=== PATIENT | female | born 1950 | race Caucasian/White ===

== ENCOUNTER 2024-02-13 20:08 | Inpatient (IN) | payer OTHER ==
[~2024-02-13] VITALS: Ht 167.6 cm; Wt 94.3 kg
[2024-02-13] MEDS ORDERED: ONDANSETRON HCL/PF 4 MG/2 ML VIAL ONE (20:51)
[2024-02-13] MEDS ORDERED: protAMINE SULFATE 10 MG/ML VIAL IV ONE (20:52)
[2024-02-13] MEDS ORDERED: HYDROCODONE/APAP 10/325MG TABLET ONE (20:52)
[2024-02-13] MEDS: HYDROCODONE/APAP 10/325MG TABLET PO ONE (20:54)
[2024-02-13] MEDS: ONDANSETRON HCL/PF 4 MG/2 ML VIAL IVP ONE (20:54)
[2024-02-13 21:01] LABS: BASOPHILS % (AUTO) 0.3 % (0.0-2.0); EOSINOPHILS # (AUTO) 0.1 K/uL (0.0-0.7); EOSINOPHILS % (AUTO) 0.5 % (0.0-6.0); HEMATOCRIT 33 % (33-45); HEMOGLOBIN 10.9 g/dL (11.5-14.8); LYMPHOCYTES # (AUTO) 0.5 K/uL (0.8-4.8); LYMPHOCYTES % (AUTO) 4.4 % (20.0-44.0); MEAN CORPUSCULAR HEMOGLOBIN 32 PG (26.0-33.0); MEAN CORPUSCULAR HGB CONC 33 g/dl (31.0-36.0); MEAN CORPUSCULAR VOLUME 97 fL (82-100); MONOCYTES # (AUTO) 0.6 K/uL (0.1-1.30); MONOCYTES % (AUTO) 4.9 % (2.0-12.0); NEUTROPHILS % (AUTO) 89.9 % (43.0-81.0); PLATELET COUNT (AUTO) 151 K/uL (150-450); RED BLOOD CELL COUNT(AUTO) 3.38 MIL/uL (4.0-5.2); RED CELL DISTRIBUTION WIDTH 15.9 % (11.5-15.0); WHITE BLOOD COUNT (AUTO) 12.3 K/uL (4.3-11.0)
[2024-02-13] MEDS ORDERED: PANTOPRAZOLE 40 MG VIAL ONE (21:09)
[2024-02-13] MEDS: PANTOPRAZOLE 80 MG in IV NS 0.9% 500 ML IV ONE (21:09)
[2024-02-13 21:13] LABS: APPEARANCE,URINE CLEAR (CLEAR); BILIRUBIN,URINE 1+ (NEGATIVE); BLOOD, URINE 3+ Ery/uL (NEGATIVE); COLOR,URINE YELLOW (YELLOW); KETONES,URINE TRACE mg/dL (NEGATIVE); LEUKOCYTE ESTERASE ,URINE TRACE (NEGATIVE); NITRITE, URINE NEGATIVE (NEGATIVE); PROTEIN,URINE 2+ mg/dl (NEGATIVE); UGLUCOSE 1+ mg/dL (NEGATIVE); UROBILINOGEN,URINE 0.2 EU/dL (0.2)
[2024-02-13 21:17] LABS: CALCIUM, SERUM 8.7 mg/dL (8.5-10.1); CARBON DIOXIDE 38 mmol/L (21-32); CHLORIDE 90 mmol/L (98-107); CREATININE 5.7 mg/dL (0.6-1.3); GLUCOSE 191 mg/dL (74-106); POTASSIUM 3.7 mmol/L (3.5-5.1); SODIUM SERUM 138 mmol/L (136-145); UREA NITROGEN, BLOOD 52 mg/dL (7-18)
[2024-02-13 21:21] LABS: INR 1.07 (0.91-1.10); PARTIAL THROMBOPLASTIN TIME 25.2 SEC (24.3-34.3); PROTHROMBIN TIME 11.3 SECS (9.2-11.1)
[2024-02-13 21:25] LABS: ALANINE AMINOTRANSFERASE 18 U/L (12-78); ALBUMIN 2.9 g/dL (3.4-5.0); ALKALINE PHOSPHATASE 161 U/L (46-116); ASPARTATE AMINOTRANSFERASE 7 U/L (15-37); BILIRUBIN,DIRECT 0.2 mg/dL (0.0-0.2); BILIRUBIN,TOTAL 0.6 mg/dL (0.2-1.0); LACTIC ACID 1.3 mmol/L (0.4-2.0); LIPASE 51 U/L (16-77); TOTAL PROTEIN, SERUM 6.3 g/dL (6.4-8.2)
[2024-02-13] MEDS: CEFTRIAXONE 1GM BAG (ER ONLY) 1 GM/50 ML PIGGYBACK IV ONE (21:33)
[2024-02-13 21:47] LABS: RBC,URINE 21-50 /HPF (0-2)
[2024-02-13 21:48] LABS: ADD URINE CULTURE YES; BACTERIA,URINE Few /HPF (None Seen)
[2024-02-14] VITALS (8 sets, daily range): BP systolic 112–151; BP diastolic 47–56; TEMP 97.5–98.4; O2SAT 92–100
[2024-02-14] MEDS ORDERED: ONDANSETRON HCL/PF 4 MG/2 ML VIAL IVP PRN (00:30)
[2024-02-14] MEDS ORDERED: DEXTROSE 50%-WATER 50 ML DISP.SYRIN IV PRN (00:30)
[2024-02-14] MEDS ORDERED: ACETAMINOPHEN 650 MG/SUPP.RECT RC PRN (00:30)
[2024-02-14] MEDS ORDERED: CEFTRIAXONE 1GM BAG (ER ONLY) 50 ML IV ONE (00:56)
[2024-02-14] MEDS: CEFTRIAXONE 1 G in IV D5W 50 ML IV SCH (00:58)
[2024-02-14] MEDS: IV NS 0.9% 1,000 ML IV PRN (00:59)
[2024-02-14] MEDS: BLOOD SUGAR DIAGNOSTIC 1 EACH STRIP IN SCH (05:16)
[2024-02-14] MEDS: INSULIN REGULAR, HUMAN 100 UNIT/ML 3 ML VIAL SQ PRN (05:17)
[2024-02-14 07:59] LABS: BASOPHILS % (AUTO) 0.3 % (0.0-2.0); EOSINOPHILS # (AUTO) 0.1 K/uL (0.0-0.7); EOSINOPHILS % (AUTO) 0.6 % (0.0-6.0); HEMATOCRIT 32 % (33-45); HEMOGLOBIN 10.4 g/dL (11.5-14.8); LYMPHOCYTES # (AUTO) 0.6 K/uL (0.8-4.8); LYMPHOCYTES % (AUTO) 4.7 % (20.0-44.0); MEAN CORPUSCULAR HEMOGLOBIN 32 PG (26.0-33.0); MEAN CORPUSCULAR HGB CONC 33 g/dl (31.0-36.0); MEAN CORPUSCULAR VOLUME 98 fL (82-100); MONOCYTES # (AUTO) 0.7 K/uL (0.1-1.30); MONOCYTES % (AUTO) 5.5 % (2.0-12.0); NEUTROPHILS # (AUTO) 11.1 K/uL (1.8-8.9); NEUTROPHILS % (AUTO) 88.9 % (43.0-81.0); PLATELET COUNT (AUTO) 136 K/uL (150-450); RED BLOOD CELL COUNT(AUTO) 3.23 MIL/uL (4.0-5.2); RED CELL DISTRIBUTION WIDTH 16.1 % (11.5-15.0); WHITE BLOOD COUNT (AUTO) 12.5 K/uL (4.3-11.0)
[2024-02-14] MEDS ORDERED: MULT-213 PO (08:07)
[2024-02-14] MEDS ORDERED: SEVE0.8P3 PO (08:07)
[2024-02-14] MEDS ORDERED: CRAN425C6 PO (08:07)
[2024-02-14] MEDS ORDERED: MIDO10TA PO (08:07)
[2024-02-14] MEDS ORDERED: INSU100V39 SQ (08:07)
[2024-02-14] MEDS ORDERED: HYDR-4076 PO (08:07)
[2024-02-14] MEDS ORDERED: HYDR-4303 PO (08:07)
[2024-02-14] MEDS ORDERED: GLUC1KIT IM (08:07)
[2024-02-14] MEDS ORDERED: OMEP20CA15 PO (08:07)
[2024-02-14] MEDS ORDERED: FURO80TA85 PO ×2 (08:07)
[2024-02-14] MEDS ORDERED: ACET-2605 PO (08:07)
[2024-02-14] MEDS ORDERED: FERR325T28 PO (08:07)
[2024-02-14] MEDS ORDERED: SENN-175 PO (08:07)
[2024-02-14] MEDS ORDERED: INSU100I19 SQ (08:07)
[2024-02-14] MEDS ORDERED: PREG50CA PO (08:07)
[2024-02-14] MEDS ORDERED: ACET-868 PO (08:07)
[2024-02-14] MEDS ORDERED: DOCU-141 PO (08:07)
[2024-02-14] MEDS ORDERED: CHOL100043 PO (08:07)
[2024-02-14] MEDS ORDERED: MAGN400O6 PO (08:07)
[2024-02-14] MEDS: PANTOPRAZOLE 40 MG VIAL IV SCH (08:25)
[2024-02-14 08:40] LABS: CARBON DIOXIDE 35 mmol/L (21-32); CHLORIDE 92 mmol/L (98-107); POTASSIUM 4.1 mmol/L (3.5-5.1); SODIUM SERUM 137 mmol/L (136-145)
[2024-02-14 08:56] LABS: CALCIUM, SERUM 8.2 mg/dL (8.5-10.1); CREATININE 5.8 mg/dL (0.6-1.3); GLUCOSE 226 mg/dL (74-106); MAGNESIUM 2.5 mg/dL (1.8-2.4); PHOSPHORUS 6.5 mg/dL (2.5-4.9); UREA NITROGEN, BLOOD 59 mg/dL (7-18)
[2024-02-14 17:53] LABS: OCCULT BLOOD STOOL NEGATIVE (NEGATIVE)
[2024-02-14] MEDS ORDERED: MINERAL OIL 133 ML (PYXIS) 1 EA ENEMA RC PRN (20:00)
[2024-02-15] VITALS (7 sets, daily range): BP systolic 118–154; BP diastolic 42–61; TEMP 97.7–98.3; O2SAT 95–100
[2024-02-15] MEDS ORDERED: MAGNESIUM HYDROXIDE 30 ML UDC PO PRN
[2024-02-15] MEDS ORDERED: hydrALAZINE HCL 25 MG TABLET PO PRN
[2024-02-15] MEDS ORDERED: ACETAMINOPHEN ES 500 MG TABLET PO PRN
[2024-02-15] MEDS ORDERED: ACETAMINOPHEN 325 MG TABLET PO PRN
[2024-02-15] MEDS: HYDROCODONE/APAP 5/325MG TABLET PO PRN (01:21)
[2024-02-15] MEDS: DOCUSATE SODIUM 100 MG CAPSULE PO SCH (08:24)
[2024-02-15] MEDS: FERROUS SULFATE (325 MG) 325 MG/TAB TABLET PO SCH (08:25)
[2024-02-15] MEDS: CHOLECALCIFEROL 1,000 UNIT TABLET (VIT D3) PO SCH (08:25)
[2024-02-15] MEDS: PREGABALIN 25 MG CAPSULE PO SCH (08:25)
[2024-02-15] MEDS: MULTIVIT W/MINERALS 1 TAB TABLET PO SCH (08:25)
[2024-02-15] MEDS: SEVELAMER CARBONATE 800 MG POWD.PACK PO SCH (08:25)
[2024-02-15] MEDS ORDERED: Medication Not On Formulary EA (Cranberry Extract (Cranberry) 425 MG) PO SCH (09:00)
[2024-02-15] MEDS ORDERED: MIDODRINE HCL (5MG) 5 MG TABLET PO SCH (09:00)
[2024-02-15 09:34] LABS: BASOPHILS % (AUTO) 0.4 % (0.0-2.0); EOSINOPHILS # (AUTO) 0.2 K/uL (0.0-0.7); HEMATOCRIT 30 % (33-45); HEMOGLOBIN 9.9 g/dL (11.5-14.8); LYMPHOCYTES # (AUTO) 0.5 K/uL (0.8-4.8); LYMPHOCYTES % (AUTO) 5.9 % (20.0-44.0); MEAN CORPUSCULAR HEMOGLOBIN 33 PG (26.0-33.0); MEAN CORPUSCULAR HGB CONC 33 g/dl (31.0-36.0); MEAN CORPUSCULAR VOLUME 99 fL (82-100); MONOCYTES # (AUTO) 0.5 K/uL (0.1-1.30); MONOCYTES % (AUTO) 6.3 % (2.0-12.0); NEUTROPHILS # (AUTO) 7.1 K/uL (1.8-8.9); NEUTROPHILS % (AUTO) 85.4 % (43.0-81.0); PLATELET COUNT (AUTO) 132 K/uL (150-450); RED BLOOD CELL COUNT(AUTO) 3.05 MIL/uL (4.0-5.2); RED CELL DISTRIBUTION WIDTH 15.8 % (11.5-15.0); WHITE BLOOD COUNT (AUTO) 8.4 K/uL (4.3-11.0)
[2024-02-15 09:54] LABS: ALANINE AMINOTRANSFERASE 17 U/L (12-78); ALBUMIN 2.6 g/dL (3.4-5.0); ALKALINE PHOSPHATASE 144 U/L (46-116); ASPARTATE AMINOTRANSFERASE 5 U/L (15-37); BILIRUBIN,TOTAL 0.5 mg/dL (0.2-1.0); CALCIUM, SERUM 8.6 mg/dL (8.5-10.1); CARBON DIOXIDE 36 mmol/L (21-32); CHLORIDE 96 mmol/L (98-107); CREATININE 4.6 mg/dL (0.6-1.3); GLUCOSE 108 mg/dL (74-106); MAGNESIUM 2.2 mg/dL (1.8-2.4); PHOSPHORUS 5.4 mg/dL (2.5-4.9); POTASSIUM 3.8 mmol/L (3.5-5.1); SODIUM SERUM 137 mmol/L (136-145); TOTAL PROTEIN, SERUM 5.8 g/dL (6.4-8.2); UREA NITROGEN, BLOOD 39 mg/dL (7-18)
[2024-02-15 13:29] LABS: IRON, SERUM 131 ug/dl (50-175); TOTAL IRON BINDING CAPACITY 148 ug/dl (250-450)
[2024-02-15 15:07] LABS: FERRITIN 2182 ng/mL (8-388)
[2024-02-15] MEDS: SENNOSIDES 8.6 MG TABLET PO SCH (21:31)
[2024-02-15] MEDS ORDERED: INSULIN GLARGINE, 100 UNIT/ML CARTRIDGE SQ SCH (22:00)
[2024-02-16] VITALS (8 sets, daily range): BP systolic 145–152; BP diastolic 49–57; TEMP 97.6–98.3; O2SAT 96–100
[2024-02-16] MEDS ORDERED: Z GUARD REMEDY 4 OZ OINT TP PRN (08:30)
[2024-02-16] MEDS: Z GUARD REMEDY 4 OZ OINT TP SCH (09:18)
[2024-02-16 09:42] LABS: BASOPHILS % (AUTO) 0.5 % (0.0-2.0); EOSINOPHILS # (AUTO) 0.2 K/uL (0.0-0.7); EOSINOPHILS % (AUTO) 1.9 % (0.0-6.0); HEMATOCRIT 28 % (33-45); HEMOGLOBIN 9.2 g/dL (11.5-14.8); LYMPHOCYTES # (AUTO) 0.5 K/uL (0.8-4.8); LYMPHOCYTES % (AUTO) 5.3 % (20.0-44.0); MEAN CORPUSCULAR HEMOGLOBIN 32 PG (26.0-33.0); MEAN CORPUSCULAR HGB CONC 33 g/dl (31.0-36.0); MEAN CORPUSCULAR VOLUME 99 fL (82-100); MONOCYTES # (AUTO) 0.6 K/uL (0.1-1.30); MONOCYTES % (AUTO) 7.3 % (2.0-12.0); NEUTROPHILS # (AUTO) 7.3 K/uL (1.8-8.9); PLATELET COUNT (AUTO) 139 K/uL (150-450); RED BLOOD CELL COUNT(AUTO) 2.85 MIL/uL (4.0-5.2); RED CELL DISTRIBUTION WIDTH 15.6 % (11.5-15.0); WHITE BLOOD COUNT (AUTO) 8.6 K/uL (4.3-11.0)
[2024-02-16 10:30] LABS: CALCIUM, SERUM 7.8 mg/dL (8.5-10.1); CARBON DIOXIDE 31 mmol/L (21-32); CHLORIDE 98 mmol/L (98-107); CREATININE 5.3 mg/dL (0.6-1.3); GLUCOSE 109 mg/dL (74-106); POTASSIUM 3.3 mmol/L (3.5-5.1); SODIUM SERUM 136 mmol/L (136-145); UREA NITROGEN, BLOOD 47 mg/dL (7-18)
[2024-02-16] MEDS ORDERED: IV NS 0.9% 250 ML IV ONE (11:13)
[2024-02-16] MEDS ORDERED: IOHEXOL-300 100 ML VIAL IV ONE (11:13)
[2024-02-17 05:00] VITALS: BP 142/53; TEMP 98.2; O2SAT 98
[2024-02-17 06:52] VITALS: O2SAT 99
[2024-02-17 07:00] VITALS: BP 139/53; TEMP 98.2; O2SAT 99
[2024-02-17 11:11] LABS: HEPATITIS A AB, IgM Negative (Negative); HEPATITIS B SURFACE AB Non Reactive (.)
[2024-02-17 15:42] LABS: BASOPHILS % (AUTO) 0.6 % (0.0-2.0); EOSINOPHILS # (AUTO) 0.2 K/uL (0.0-0.7); EOSINOPHILS % (AUTO) 2.1 % (0.0-6.0); HEMATOCRIT 25 % (33-45); HEMOGLOBIN 8.4 g/dL (11.5-14.8); LYMPHOCYTES # (AUTO) 0.5 K/uL (0.8-4.8); LYMPHOCYTES % (AUTO) 6.5 % (20.0-44.0); MEAN CORPUSCULAR HEMOGLOBIN 33 PG (26.0-33.0); MEAN CORPUSCULAR HGB CONC 34 g/dl (31.0-36.0); MEAN CORPUSCULAR VOLUME 98 fL (82-100); MONOCYTES # (AUTO) 0.6 K/uL (0.1-1.30); MONOCYTES % (AUTO) 8.4 % (2.0-12.0); NEUTROPHILS # (AUTO) 6.3 K/uL (1.8-8.9); NEUTROPHILS % (AUTO) 82.4 % (43.0-81.0); PLATELET COUNT (AUTO) 140 K/uL (150-450); RED BLOOD CELL COUNT(AUTO) 2.56 MIL/uL (4.0-5.2); RED CELL DISTRIBUTION WIDTH 15.5 % (11.5-15.0); WHITE BLOOD COUNT (AUTO) 7.6 K/uL (4.3-11.0)
[2024-02-17 15:53] LABS: CALCIUM, SERUM 7.4 mg/dL (8.5-10.1); CARBON DIOXIDE 27 mmol/L (21-32); CHLORIDE 97 mmol/L (98-107); CREATININE 6.1 mg/dL (0.6-1.3); GLUCOSE 166 mg/dL (74-106); POTASSIUM 3.8 mmol/L (3.5-5.1); SODIUM SERUM 134 mmol/L (136-145); UREA NITROGEN, BLOOD 54 mg/dL (7-18)
[2024-02-17 16:00] VITALS: BP 131/54; TEMP 97.9; O2SAT 99
[2024-02-17 21:40] VITALS: BP 146/46; TEMP 97.9; O2SAT 97
[2024-02-18 07:00] VITALS: BP 121/51; TEMP 98.4; O2SAT 97
[2024-02-18 07:23] VITALS: O2SAT 99
[2024-02-18 07:36] LABS: BASOPHILS # (AUTO) 0.1 K/uL (0.0-0.2); BASOPHILS % (AUTO) 0.9 % (0.0-2.0); EOSINOPHILS # (AUTO) 0.2 K/uL (0.0-0.7); EOSINOPHILS % (AUTO) 2.5 % (0.0-6.0); HEMATOCRIT 26 % (33-45); HEMOGLOBIN 8.6 g/dL (11.5-14.8); LYMPHOCYTES # (AUTO) 0.5 K/uL (0.8-4.8); LYMPHOCYTES % (AUTO) 7.5 % (20.0-44.0); MEAN CORPUSCULAR HEMOGLOBIN 32 PG (26.0-33.0); MEAN CORPUSCULAR HGB CONC 33 g/dl (31.0-36.0); MEAN CORPUSCULAR VOLUME 97 fL (82-100); MONOCYTES # (AUTO) 0.7 K/uL (0.1-1.30); MONOCYTES % (AUTO) 10.8 % (2.0-12.0); NEUTROPHILS # (AUTO) 5.2 K/uL (1.8-8.9); NEUTROPHILS % (AUTO) 78.3 % (43.0-81.0); PLATELET COUNT (AUTO) 162 K/uL (150-450); RED BLOOD CELL COUNT(AUTO) 2.67 MIL/uL (4.0-5.2); RED CELL DISTRIBUTION WIDTH 15.8 % (11.5-15.0); WHITE BLOOD COUNT (AUTO) 6.6 K/uL (4.3-11.0)
[2024-02-18 08:02] LABS: CALCIUM, SERUM 7.8 mg/dL (8.5-10.1); CARBON DIOXIDE 29 mmol/L (21-32); CHLORIDE 96 mmol/L (98-107); CREATININE 5.4 mg/dL (0.6-1.3); GLUCOSE 144 mg/dL (74-106); POTASSIUM 3.8 mmol/L (3.5-5.1); SODIUM SERUM 135 mmol/L (136-145); UREA NITROGEN, BLOOD 41 mg/dL (7-18)
[2024-02-18] MEDS: SEVELAMER CARBONATE 800 MG TABLET PO SCH (12:27)
[2024-02-18 16:00] VITALS: BP 130/52; TEMP 97.7; O2SAT 98
[2024-02-18 20:00] VITALS: BP 151/55; TEMP 98.4; O2SAT 98
[2024-02-19 06:01] VITALS: O2SAT 99
[2024-02-19 07:00] VITALS: BP 154/48; TEMP 99.9; O2SAT 99
[2024-02-19 07:28] LABS: BASOPHILS # (AUTO) 0.1 K/uL (0.0-0.2); BASOPHILS % (AUTO) 1.2 % (0.0-2.0); EOSINOPHILS # (AUTO) 0.2 K/uL (0.0-0.7); EOSINOPHILS % (AUTO) 3.8 % (0.0-6.0); HEMATOCRIT 25 % (33-45); HEMOGLOBIN 8.5 g/dL (11.5-14.8); LYMPHOCYTES # (AUTO) 0.7 K/uL (0.8-4.8); LYMPHOCYTES % (AUTO) 11.9 % (20.0-44.0); MEAN CORPUSCULAR HEMOGLOBIN 33 PG (26.0-33.0); MEAN CORPUSCULAR HGB CONC 34 g/dl (31.0-36.0); MEAN CORPUSCULAR VOLUME 98 fL (82-100); MONOCYTES # (AUTO) 0.7 K/uL (0.1-1.30); MONOCYTES % (AUTO) 12.3 % (2.0-12.0); NEUTROPHILS # (AUTO) 4.1 K/uL (1.8-8.9); NEUTROPHILS % (AUTO) 70.8 % (43.0-81.0); PLATELET COUNT (AUTO) 159 K/uL (150-450); RED BLOOD CELL COUNT(AUTO) 2.57 MIL/uL (4.0-5.2); RED CELL DISTRIBUTION WIDTH 15.6 % (11.5-15.0); WHITE BLOOD COUNT (AUTO) 5.9 K/uL (4.3-11.0)
[2024-02-19 07:58] LABS: ALANINE AMINOTRANSFERASE 14 U/L (12-78); ALBUMIN 2.2 g/dL (3.4-5.0); ALKALINE PHOSPHATASE 145 U/L (46-116); ASPARTATE AMINOTRANSFERASE 7 U/L (15-37); BILIRUBIN,TOTAL 0.4 mg/dL (0.2-1.0); CALCIUM, SERUM 8.1 mg/dL (8.5-10.1); CARBON DIOXIDE 33 mmol/L (21-32); CHLORIDE 99 mmol/L (98-107); CREATININE 6.7 mg/dL (0.6-1.3); GLUCOSE 156 mg/dL (74-106); MAGNESIUM 2.2 mg/dL (1.8-2.4); PHOSPHORUS 4.9 mg/dL (2.5-4.9); POTASSIUM 4.3 mmol/L (3.5-5.1); SODIUM SERUM 138 mmol/L (136-145); TOTAL PROTEIN, SERUM 5.1 g/dL (6.4-8.2); UREA NITROGEN, BLOOD 47 mg/dL (7-18)
[2024-02-19 16:00] VITALS: BP 149/57; TEMP 98.3; O2SAT 99
[2024-02-19 18:42] VITALS: BP 132/48; TEMP 98.2; O2SAT 98
[2024-02-19] MEDS: FLUCONAZOLE IN NS,PREMIX 200 MG in PREMIX 1 EA IV SCH (19:34)
[2024-02-19 20:00] VITALS: BP 125/51; TEMP 99; O2SAT 100; O2SAT 99
[2024-02-20 05:39] VITALS: O2SAT 100
[2024-02-20] MEDS: FLUCONAZOLE (100 MG) 100 MG TABLET PO SCH (09:19)
[2024-02-20] MEDS ORDERED: FLUC200T PO (10:23)
[2024-02-20] MEDS ORDERED: PANTOPRAZOLE 40 MG TABLET.DR PO SCH (21:00)
== END 2024-02-20 16:11 | disposition home health service (06) | DRG 368 ==
LOC: ER 20:10 → TELE 23:35 → MED 02-17 10:35
PROVIDERS: ADMIT Student in an Organized Health Care Education/Training Program
PROC: 0DB58ZX Excision of Esophagus, Via Natural or Artificial Opening Endoscopic, Diagnostic (ICD-10-PCS; principal; 2024-02-14)
PROC: 5A1D70Z Performance of Urinary Filtration, Intermittent, Less than 6 Hours Per Day (ICD-10-PCS; 2024-02-14)
DX: B37.81 Candidal esophagitis (principal); N18.6 End stage renal disease; K92.0 Hematemesis; N39.0 Urinary tract infection, site not specified; E44.0 Moderate protein-calorie malnutrition; K56.7 Ileus, unspecified; I12.0 Hypertensive chronic kidney disease with stage 5 chronic kidney disease or end stage renal disease; Z99.2 Dependence on renal dialysis; E11.22 Type 2 diabetes mellitus with diabetic chronic kidney disease; D63.1 Anemia in chronic kidney disease; E11.42 Type 2 diabetes mellitus with diabetic polyneuropathy; E83.42 Hypomagnesemia; K21.9 Gastro-esophageal reflux disease without esophagitis; Z79.4 Long term (current) use of insulin; E83.39 Other disorders of phosphorus metabolism; E88.09 Other disorders of plasma-protein metabolism, not elsewhere classified; Z68.33 Body mass index [BMI] 33.0-33.9, adult; K59.00 Constipation, unspecified; M54.30 Sciatica, unspecified side; K42.9 Umbilical hernia without obstruction or gangrene; N25.0 Renal osteodystrophy; I95.9 Hypotension, unspecified; D72.829 Elevated white blood cell count, unspecified; E11.621 Type 2 diabetes mellitus with foot ulcer; L97.529 Non-pressure chronic ulcer of other part of left foot with unspecified severity; L97.519 Non-pressure chronic ulcer of other part of right foot with unspecified severity; K57.30 Diverticulosis of large intestine without perforation or abscess without bleeding; D18.03 Hemangioma of intra-abdominal structures
CPT/HCPCS: 36415; 71045-TC; 80048-TC; 80053-TC; 80076-TC; 81001; 82272-TC; 82728-TC; 82962-TC; 83540-TC; 83605-TC; 83690-TC; 83735-TC; 83970; 84100-TC; 84484-TC; 85025-TC; 85730-TC; 86706; 86709; 87081-TC; 87086-TC; 90935-TC; 93307-TC; 94760-TC; 94761-TC; 94799-TC; 97110-TC; 97116-TC; 97530-TC; A4216; A4223; C9113; G0378; J0696; J1450; J1815; J2405; J2704; J2720; J3490; J7030; J7040; J7050; J7060; Q9967